=== PATIENT | male | born 1965 | race Caucasian/White ===

== ENCOUNTER 2019-03-22 22:09 | Outpatient (REF) | payer OTHER, SELFPAY ==
[2019-03-22 22:41] LABS: Anion Gap 11.4 mmol/L (3-11); BUN 13 mg/dL (7-18); CO2 26.6 mmol/L (21.0-32.0); Calcium 9.5 mg/dL (8.5-10.1); Calculated LDL 196 mg/dL; Chloride 101 mmol/L (98-107); Cholesterol 275 mg/dL (<200); Glucose 85 mg/dL (74-106); HDL Cholesterol 53 mg/dL (40-60); Potassium 4.2 mmol/L (3.5-5.1); Sodium 139 mmol/L (136-145); Triglyceride 132 mg/dL (<150)
[2019-03-22 22:58] LABS: Hemoglobin A1C 5.7 % (4.5-6.2)
== END 2019-03-22 22:29 ==
LOC: NCHCN 22:09
PROVIDERS: PCP Registered Nurse; Visit Provider Registered Nurse
DX: Z00.00 Encounter for general adult medical examination without abnormal findings (principal); R73.03 Prediabetes; E66.9 Obesity, unspecified
CPT/HCPCS: 80048; 80061; 83036

== ENCOUNTER 2019-04-05 15:20 | Outpatient (REF) | payer OTHER, SELFPAY ==
[2019-04-05 21:24] LABS: Anion Gap 11.7 mmol/L (3-11); BUN 12 mg/dL (7-18); CO2 27.3 mmol/L (21.0-32.0); Calcium 9.2 mg/dL (8.5-10.1); Chloride 102 mmol/L (98-107); Glucose 111 mg/dL (74-106); Potassium 4.3 mmol/L (3.5-5.1); Sodium 141 mmol/L (136-145)
== END 2019-04-05 15:40 ==
LOC: NCHCN 15:20
PROVIDERS: PCP Registered Nurse; Visit Provider Registered Nurse
DX: I10 Essential (primary) hypertension (principal)
CPT/HCPCS: 80048

== ENCOUNTER 2019-06-16 08:12 | Outpatient (REF) | payer OTHER, SELFPAY ==
[2019-06-16 21:55] LABS: Calculated LDL 111 mg/dL (<100); Cholesterol 193 mg/dL (<200); HDL Cholesterol 48 mg/dL (40-60); Triglyceride 170 mg/dL (<150)
== END 2019-06-16 08:32 ==
LOC: NCHCN 08:12
PROVIDERS: PCP Registered Nurse; Visit Provider Registered Nurse
DX: E66.9 Obesity, unspecified (principal)
CPT/HCPCS: 80061

== ENCOUNTER 2019-09-01 12:12 | Outpatient (REF) | payer OTHER, SELFPAY ==
[2019-09-01 21:32] LABS: Hemoglobin A1C 5.7 % (3.8-5.6)
== END 2019-09-01 12:32 ==
LOC: NCHCN 12:12
PROVIDERS: PCP Registered Nurse; Visit Provider Registered Nurse
DX: R73.03 Prediabetes (principal)
CPT/HCPCS: 83036

== ENCOUNTER 2019-10-08 10:33 | Outpatient (REF) | payer OTHER, SELFPAY ==
[2019-10-08 21:23] LABS: Anion Gap 9.8 mmol/L (3-11); BUN 15 mg/dL (7-18); CO2 26.2 mmol/L (21.0-32.0); CREATININE 1.19 mg/dL (0.70-1.30); Calcium 9.2 mg/dL (8.5-10.1); Chloride 100 mmol/L (98-107); Glucose 98 mg/dL (74-106); Potassium 4.7 mmol/L (3.5-5.1); Sodium 136 mmol/L (136-145)
== END 2019-10-08 10:53 ==
LOC: NCHCN 10:33
PROVIDERS: PCP Registered Nurse; Visit Provider Registered Nurse
DX: I10 Essential (primary) hypertension (principal)
CPT/HCPCS: 80048

== ENCOUNTER 2020-05-11 14:02 | Outpatient (REF) | payer OTHER, SELFPAY ==
[2020-05-11 13:11] LABS: Anion Gap 10.4 mmol/L (3-11); BUN 18 mg/dL (7-18); CO2 24.6 mmol/L (21.0-32.0); CREATININE 1.04 mg/dL (0.70-1.30); Calcium 9.2 mg/dL (8.5-10.1); Chloride 101 mmol/L (98-107); Glucose 115 mg/dL (74-106); Potassium 4.2 mmol/L (3.5-5.1); Sodium 136 mmol/L (136-145)
== END 2020-05-11 14:22 ==
LOC: NCHCN 14:02
PROVIDERS: PCP Registered Nurse; Visit Provider Registered Nurse
DX: I10 Essential (primary) hypertension (principal); R73.03 Prediabetes; I49.1 Atrial premature depolarization
CPT/HCPCS: 80048

== ENCOUNTER 2021-03-28 08:26 | Outpatient (REF) | payer OTHER, SELFPAY ==
[2021-03-28 21:55] LABS: Anion Gap 7.7 mmol/L (3-11); BUN 14 mg/dL (7-18); CO2 28.3 mmol/L (21.0-32.0); Calcium 9.3 mg/dL (8.5-10.1); Chloride 100 mmol/L (98-107); Glucose 86 mg/dL (74-106); Potassium 4.6 mmol/L (3.5-5.1); Sodium 136 mmol/L (136-145)
== END 2021-03-28 08:27 | disposition home or self-care (01) ==
LOC: NCHCN 08:26
PROVIDERS: PCP Registered Nurse; Visit Provider Registered Nurse
DX: I10 Essential (primary) hypertension (principal)
CPT/HCPCS: 80048

== ENCOUNTER 2022-07-24 16:18 | Outpatient (REF) | payer BC, SELFPAY ==
[2022-07-24 21:46] LABS: Anion Gap 9.6 mmol/L (3-11); BUN 15 mg/dL (7-18); CO2 26.4 mmol/L (21.0-32.0); CREATININE 1.1 mg/dL (0.70-1.30); Calcium 9.2 mg/dL (8.5-10.1); Chloride 102 mmol/L (98-107); Estimated GFR 78.79 (mL/min/1.73m2); Glucose 125 mg/dL (74-106); Potassium 4.3 mmol/L (3.5-5.1); Sodium 138 mmol/L (136-145)
[2022-07-24 22:33] LABS: Hemoglobin A1C 5.7 % (<5.7)
== END 2022-07-24 16:19 | disposition home or self-care (01) ==
LOC: NCHCN 16:18
PROVIDERS: PCP Registered Nurse; Visit Provider Registered Nurse
DX: I10 Essential (primary) hypertension (principal); R73.03 Prediabetes
CPT/HCPCS: 80048; 83036

== ENCOUNTER 2023-07-30 21:41 | Outpatient (REF) | payer BC, SELFPAY ==
[2023-07-30 22:14] LABS: ALT 54 U/L (16-63); AST 25 U/L (15-37); Albumin 3.9 g/dL (3.4-5.0); Alkaline Phosphatase 125 U/L (46-116); Anion Gap 8.8 mmol/L (3-11); BUN 16 mg/dL (7-18); Bilirubin, Total 1.2 mg/dL (0.2-1.0); CO2 28.2 mmol/L (21.0-32.0); CREATININE 1.1 mg/dL (0.70-1.30); Calcium 8.9 mg/dL (8.5-10.1); Calculated LDL 131 mg/dL (<100); Chloride 103 mmol/L (98-107); Cholesterol 221 mg/dL (<200); Glucose 118 mg/dL (74-106); HDL Cholesterol 56 mg/dL (40-60); Potassium 4.4 mmol/L (3.5-5.1); Sodium 140 mmol/L (136-145); Triglyceride 170 mg/dL (<150)
[2023-07-31 17:31] LABS: PSA, Screening 0.6 ng/mL (<=3.5)
== END 2023-07-30 21:42 | disposition home or self-care (01) ==
LOC: NCHCN 21:41
PROVIDERS: PCP Registered Nurse; Visit Provider Internal Medicine
DX: Z00.00 Encounter for general adult medical examination without abnormal findings (principal); I10 Essential (primary) hypertension; E78.5 Hyperlipidemia, unspecified; Z12.5 Encounter for screening for malignant neoplasm of prostate
CPT/HCPCS: 80053; 80061; 84153

== ENCOUNTER 2023-08-26 14:47 | Outpatient (REF) | payer BC, SELFPAY ==
[2023-08-26 14:55] LABS: Anion Gap 8.3 mmol/L (3-11); BUN 15 mg/dL (7-18); CO2 27.7 mmol/L (21.0-32.0); CREATININE 1.2 mg/dL (0.70-1.30); Calcium 9.1 mg/dL (8.5-10.1); Chloride 102 mmol/L (98-107); Estimated GFR 70.53 (mL/min/1.73m2); GGT 92 U/L (15-85); Glucose 113 mg/dL (74-106); Potassium 4.1 mmol/L (3.5-5.1); Sodium 138 mmol/L (136-145)
== END 2023-08-26 14:48 | disposition home or self-care (01) ==
LOC: NCHCN 14:47
PROVIDERS: PCP Registered Nurse; Visit Provider Internal Medicine
DX: R74.8 Abnormal levels of other serum enzymes (principal); I10 Essential (primary) hypertension
CPT/HCPCS: 80048; 82977

== ENCOUNTER 2023-11-28 19:09 | Outpatient (REF) | payer BC, SELFPAY ==
[2023-11-28 15:22] LABS: Hemoglobin A1C 5.8 % (<5.7)
[2023-11-28 19:18] LABS: ALT 40 U/L (16-63); AST 25 U/L (15-37); Albumin 3.8 g/dL (3.4-5.0); Alkaline Phosphatase 105 U/L (46-116); Anion Gap 9.8 mmol/L (3-11); BUN 16 mg/dL (7-18); Bilirubin, Total 1.41 mg/dL (0.2-1.0); CO2 26.2 mmol/L (21.0-32.0); CREATININE 1.1 mg/dL (0.70-1.30); Calcium 9.1 mg/dL (8.5-10.1); Calculated LDL 98 mg/dL (<100); Chloride 103 mmol/L (98-107); Cholesterol 173 mg/dL (<200); Glucose 119 mg/dL (74-106); HDL Cholesterol 53 mg/dL (40-60); Potassium 4.4 mmol/L (3.5-5.1); Sodium 139 mmol/L (136-145); Total Protein 7.6 g/dL (6.4-8.2); Triglyceride 110 mg/dL (<150)
[2023-12-01 10:48] LABS: Hepatitis C Ab w Rflx HCV PCR Negative (Negative)
== END 2023-11-28 19:10 | disposition home or self-care (01) ==
LOC: NCHCN 19:09
PROVIDERS: PCP Registered Nurse; Visit Provider Internal Medicine
DX: E78.5 Hyperlipidemia, unspecified (principal); R73.03 Prediabetes; E66.8 Other obesity; Z68.32 Body mass index [BMI] 32.0-32.9, adult; Z11.59 Encounter for screening for other viral diseases
CPT/HCPCS: 80053; 80061; 86803; 83036

== ENCOUNTER 2024-11-22 13:03 | Outpatient (REF) | payer OTHER, SELFPAY ==
[2024-11-22 15:56] LABS: HCT 49.5 % (40.0-50.0); HGB 16.3 g/dL (13.5-17.5); MCH 29.2 pg (27.0-33.0); MCHC 32.9 % (32.0-36.0); MCV 89 fL (80-95); MPV 10.4 fL (8.0-11.0); Platelet Count 297 10^3/uL (130-400); RBC 5.59 10^6/uL (4.36-5.78); RDW 13.0 % (11.8-14.1); RDW-SD 42.2 fL; WBC 6.16 10^3/uL (4.4-10.8)
[2024-11-22 16:11] LABS: ALT 46 U/L (16-63); AST 23 U/L (15-37); Albumin 4.4 g/dL (3.4-5.0); Alkaline Phosphatase 97 U/L (46-116); Anion Gap 6.0 mmol/L (3-11); BUN 19 mg/dL (7-18); Bilirubin, Total 1.2 mg/dL (0.2-1.0); CO2 32.0 mmol/L (21.0-32.0); Calcium 9.8 mg/dL (8.5-10.1); Calculated LDL 114 mg/dL (<100); Chloride 102 mmol/L (98-107); Cholesterol 218 mg/dL (<200); Estimated GFR 77.81 (mL/min/1.73m2); Glucose 122 mg/dL (74-106); HDL Cholesterol 62 mg/dL (>or=40); Potassium 4.4 mmol/L (3.5-5.1); Sodium 140 mmol/L (136-145); Total Protein 8.6 g/dL (6.4-8.2); Triglyceride 210 mg/dL (<150)
[2024-11-22 16:35] LABS: Hemoglobin A1C 5.7 % (<5.7)
== END 2024-11-22 13:04 | disposition home or self-care (01) ==
LOC: NCHCN 13:03
PROVIDERS: PCP Registered Nurse; Visit Provider Internal Medicine
DX: F52.21 Male erectile disorder (principal); R74.8 Abnormal levels of other serum enzymes; R73.03 Prediabetes; E78.5 Hyperlipidemia, unspecified
CPT/HCPCS: 80053; 80061; 84403; 85027; 83036